=== PATIENT | male | born 1960 | race Caucasian/White ===

== ENCOUNTER 2022-09-12 11:51 | Emergency (ER) | payer OTHER, SELFPAY ==
[2022-09-12 13:37] VITALS: BP 155/65; PULSE 107; RESP 20; TEMP 37.4; O2SAT 98
--- NOTE | 2022-09-12 14:52 | ED.URI ---
HPI - URI/Sore Throat General Chief Complaint: Upper Respiratory Infection Stated Complaint: cough,congestion Time Seen by Provider: 09/12/22 14:45 Source: patient and family Mode of arrival: ambulatory Limitations: no limitations History of Present Illness HPI Narrative: The patient presents today complaining of cough, rhinorrhea, vomiting, postnasal drip, and increased blood sugar since yesterday morning. Denies fever or shortness of breath. He has taken a dose of Benadryl today which provided some mild relief. Denies any history of COPD or asthma. Patient uses an insulin pump and states that he has not been able to get his insulin to decrease his blood sugar from the 280s. He did receive a flu vaccine. Related Data Home Medications Medication Instructions Recorded Confirmed aspirin 325 mg tablet 325 mg PO DAILY 09/28/19 08/10/22 travoprost 0.004 % eye drops 1 drop ophthalmic (eye) QPM 09/28/19 08/10/22 (Travatan Z) ezetimibe 10 mg-simvastatin 20 mg 1 tablet PO DAILY 07/24/20 08/10/22 tablet (Vytorin) lisinopril 5 mg tablet 10 mg PO DAILY 05/06/22 08/10/22 homzxugigaby-bsc-wwdcr acid-vit 1 tablet PO DAILY 05/06/22 08/10/22 K-lycop 400 mcg-20 mcg-370 mcg tablet (One-A-Day Men's 50 Plus) azelastine 137 mcg (0.1 %) nasal ml intranasal 08/10/22 08/10/22 spray aerosol Allergies Allergy/AdvReac Type Severity Reaction Status Date / Time sulfanilamide Allergy Mild Hives Verified 08/10/22 13:45 codeine Allergy Unknown Hives Verified 08/10/22 13:45 Penicillins Allergy Unknown hives Verified 08/10/22 13:45 PENICILLIN Allergy Intermediate hives Uncoded 08/10/22 13:45 Ozempic Allergy Mild Nausea and Uncoded 08/10/22 13:45 Vomiting SULFA Allergy Mild Hives Uncoded 08/10/22 13:45 Review of Systems Review of Systems: CONSTITUTIONAL: Denies fever, or sweats.+ Body aches, chills, fatigue EYES: Denies visual changes, redness, or discharge. ENT: Denies congestion, sore throat, or otalgia.+ rhinorrhea, postnasal drip CARDIOVASCULAR: Denies chest pain, palpitations, or edema. RESPIRATORY: Denies cough or dyspnea. GASTROINTESTINAL: Denies abdominal pain, nausea, or diarrhea.+ vomiting GENITOURINARY: Denies dysuria or hematuria. SKIN: Denies rash, itching, or wounds. MUSCULOSKELETAL: Denies back pain, joint pain, or myalgia. NEUROLOGIC: Denies headache, numbness, tingling, or weakness. PSYCH: Denies depression or anxiety. [facility] Past Medical History Medical History (Updated 09/12/22 @ 15:22 by Shana Crespo, [employer], ) Cataracts, bilateral Surgical History Surgical History History of appendectomy S/P LASIK surgery of both eyes S/P trigger finger release Family History Family History Mother Family history of migraine headaches Family history of cataracts Carcinoma of colon Family history of diabetes mellitus in first degree relative Grandparent Cerebrovascular accident Father Family history of diabetes mellitus in first degree relative Family history of coronary artery disease Social History Social History Smoking status: Never smoker Alcohol intake: current Comments At time of signature, I have reviewed and agree with nursing past medical, surgical, social and family history unless otherwise noted. Please see nursing chart for further information. There is no relevant family history pertinent to the presenting complaint Exam Narrative: GENERAL: mildly ill-appearing, well-nourished, and in no acute distress. HEAD: Normocephalic, atraumatic. EYES: EOMI. No redness or drainage. Conjunctivae normal. ENT: Mucous membranes pink and moist. Nares mildly congested. No rhinorrhea. TMs normal bilaterally. Throat normal. Uvula midline. NECK: Normal AROM. Supple. No lymphadenopathy. CHEST: No resp
== END 2022-09-12 15:26 | disposition home or self-care (01) ==
PROVIDERS: Emergency Provider Nurse Practitioner; PCP Family Medicine Sports Medicine
DX: B34.9 Viral infection, unspecified (principal)
CPT/HCPCS: 87804; 99213; G0463